=== PATIENT | male | born 1985 | race Caucasian/White ===

== ENCOUNTER → 2019-12-08 14:37 | Outpatient (CLI) | payer OTHER, SELFPAY ==
[2019-12-08 15:05] LABS: Basophils # 0.1 K/mm3 (0-0.2); Eosinophils # 0.7 K/mm3 (0.0-0.4); Eosinophils % 8.2 % (0.1-12.0); Hemoglobin 16.4 g/dL (14.1-18.0); Lymphocytes # 1.9 K/mm3 (0.7-4.5); Lymphocytes % 23.4 % (10-50); Mean Corpuscular HGB Conc 34.3 g/dL (31.8-35.4); Mean Corpuscular Hemoglobin 29.8 pg (27.0-31.2); Mean Platelet Volume 7.6 fl (7.4-10.4); Monocytes # 0.4 K/mm3 (0.1-1.0); Monocytes % 5.2 % (1.7-9.3); Neutrophils # 5.1 K/mm3 (1.8-7.8); Neutrophils % 62.1 % (37.0-80.0); Platelet Count 382 K/mm3 (142-424); Red Blood Count 5.51 M/mm3 (4.60-6.20); Red Cell Distribution Width 13.1 % (11.5-17.5); White Blood Count 8.2 K/mm3 (4.8-10.8)
[2019-12-08 16:11] LABS: Chloride 105 mmol/L (98-107); Potassium 4.3 mmoL/L (3.5-5.1); Sodium 139 mmol/L (136-145)
[2019-12-08 16:13] LABS: Alanine Aminotransferase 213 U/L (12-78); Albumin Level 4.5 g/dl (3.5-5.0); Alkaline Phosphatase 96 U/L (38-126); Aspartate Amino Transferase 84 U/L (17-59); Bilirubin,Total 0.6 mg/dl (0.2-1.3); Blood Urea Nitrogen 12 mg/dl (9-20); Estimated Glomerular Filt Rate 112 ml/min (>60); GFR (African American) 136 ML/MIN (>60)
[2019-12-08 16:14] LABS: Albumin/Globulin Ratio 1.7 (1.1-1.8); Anion Gap 12.3 mEq/L (5-15); Calcium 9.1 mg/dl (8.4-10.2); Carbon Dioxide 26 mmol/L (22.0-30.0); Chol/HDL Ratio 4.9 (1-3.5); Cholesterol 228 mg/dl (140-200); Globulin 2.7 g/dL (1.3-3.2); Glucose 89 mg/dl (74-100); HDL Cholesterol 47 mg/dl (40-60); Total Protein,Serum 7.2 g/dl (6.3-8.2); Triglycerides 270 mg/dl (30-150); VLDL Cholesterol 54 mg/dL (0-40)
[2019-12-08 16:25] LABS: Direct LDL Cholesterol 175.58 mg/dL (100-129)
[2019-12-08 16:30] LABS: T4 (Thyroxine) 7.8 ug/dl (5.53-11.0)
[2019-12-08 16:44] LABS: Thyroid Stimulating Hormone 1.95 uIU/mL (0.465-4.68)
[2019-12-10 08:13] LABS: Hep A Ab, IgM Negative (Negative); Hepatitis B Core Antibody IgM Negative (Negative); Hepatitis B Surface Antigen Negative (Negative)
[2019-12-10 14:15] LABS: Vitamin D 25 Hydroxy 28.8 ng/mL (30.0-100.0)
[2019-12-10 14:16] LABS: Hepatitis C Antibody 0.1 s/co ratio (0.0-0.9)
== END ==
PROVIDERS: Visit Provider Physician Assistant
DX: E66.9 Obesity, unspecified (principal); R74.8 Abnormal levels of other serum enzymes
CPT/HCPCS: 80053; 80061; 80074; 82652; 84436; 84443; 85025

== ENCOUNTER → 2020-01-24 11:18 | Outpatient (CLI) | payer OTHER, SELFPAY ==
[2020-01-25 08:29] LABS: Covid-19 Nasal PCR Sendout UK Not Detected
== END ==
PROVIDERS: PCP Emergency Medicine; Visit Provider Emergency Medicine
DX: Z03.818 Encounter for observation for suspected exposure to other biological agents ruled out (principal)
CPT/HCPCS: U0003

== ENCOUNTER → 2020-04-08 18:03 | Outpatient (CLI) | payer OTHER, SELFPAY ==
[2020-04-08 19:05] LABS: Basophils # 0.1 K/mm3 (0-0.2); Basophils % 0.7 % (0.1-2.0); Eosinophils # 0.6 K/mm3 (0.0-0.4); Eosinophils % 5.5 % (0.1-12.0); Hematocrit 45.5 % (42.0-52.0); Hemoglobin 16.1 g/dL (14.1-18.0); Lymphocytes # 1.8 K/mm3 (0.7-4.5); Lymphocytes % 16.4 % (10-50); Mean Corpuscular HGB Conc 35.5 g/dL (31.8-35.4); Mean Corpuscular Hemoglobin 30.1 pg (27.0-31.2); Mean Corpuscular Volume 84.9 fl (80-94); Mean Platelet Volume 7.8 fl (7.4-10.4); Monocytes # 0.5 K/mm3 (0.1-1.0); Monocytes % 4.6 % (1.7-9.3); Neutrophils # 7.8 K/mm3 (1.8-7.8); Neutrophils % 72.8 % (37.0-80.0); Platelet Count 388 K/mm3 (142-424); Red Blood Count 5.36 M/mm3 (4.60-6.20); White Blood Count 10.8 K/mm3 (4.8-10.8)
[2020-04-08 19:12] LABS: Chloride 101 mmol/L (98-107); Potassium 4.2 mmoL/L (3.5-5.1); Sodium 140 mmol/L (136-145)
[2020-04-08 19:14] LABS: Alanine Aminotransferase 211 U/L (12-78); Aspartate Amino Transferase 81 U/L (17-59); Blood Urea Nitrogen 13 mg/dl (9-20); Estimated Glomerular Filt Rate 111 ml/min (>60); GFR (African American) 135 ML/MIN (>60)
[2020-04-08 19:15] LABS: Albumin Level 4.3 g/dl (3.5-5.0); Albumin/Globulin Ratio 1.6 (1.1-1.8); Alkaline Phosphatase 81 U/L (38-126); Anion Gap 15.2 mEq/L (5-15); Bilirubin,Total 0.6 mg/dl (0.2-1.3); Calcium 9.6 mg/dl (8.4-10.2); Carbon Dioxide 28 mmol/L (22.0-30.0); Chol/HDL Ratio 4.3 (1-3.5); Cholesterol 233 mg/dl (140-200); Globulin 2.7 g/dL (1.3-3.2); Glucose 169 mg/dl (74-100); HDL Cholesterol 54 mg/dl (40-60); Triglycerides 252 mg/dl (30-150); VLDL Cholesterol 50 mg/dL (0-40)
[2020-04-08 19:26] LABS: Direct LDL Cholesterol 157.76 mg/dL (100-129)
[2020-04-10 16:46] LABS: Testosterone,Total 160 ng/dL (264-916)
== END ==
PROVIDERS: Visit Provider Physician Assistant
DX: F32.9 Major depressive disorder, single episode, unspecified (principal)
CPT/HCPCS: 80053; 80061; 84403; 84436; 84443; 85025

== ENCOUNTER → 2020-04-19 09:34 | Outpatient (CLI) | payer OTHER, SELFPAY ==
--- NOTE | 2020-04-19 09:34 | US_ITS ---
PROCEDURE: US LIVER CLINICAL INDICATION: elevated lft COMPARISON: No exams were available for comparison FINDINGS: PANCREAS: Unremarkable. No obvious mass or abnormal fluid collection. No ductal dilatation LIVER: Diffuse increased echogenicity of the liver with poor through transmission of sound consistent with hepatic steatosis. No focal liver lesion demonstrated. There is appropriate direction of blood flow within non dilated portal vein. RIGHT KIDNEY: Unremarkable. Normal size and echogenicity. No hydronephrosis GALLBLADDER: No gallstones, gallbladder wall thickening, pericholecystic fluid, or biliary dilatation. IMPRESSION: Fatty liver otherwise negative Dictated by: Aubrey Caldwell MD 04/19/2020 13:41 Aubrey Caldwell MD in [place] 04/19/2020 13:41
== END ==
PROVIDERS: PCP Physician Assistant; Visit Provider Emergency Medicine
DX: R79.89 Other specified abnormal findings of blood chemistry (principal); R73.9 Hyperglycemia, unspecified
CPT/HCPCS: 76705

== ENCOUNTER → 2020-04-23 21:40 | Outpatient (CLI) | payer OTHER, SELFPAY ==
[2020-04-25 08:25] LABS: Covid-19 Nasal PCR Sendout UK Not Detected
== END ==
PROVIDERS: PCP Physician Assistant; Visit Provider Physician Assistant
DX: Z03.818 Encounter for observation for suspected exposure to other biological agents ruled out (principal)
CPT/HCPCS: U0003

== ENCOUNTER → 2020-09-27 17:51 | Outpatient (CLI) | payer OTHER, SELFPAY ==
[2020-09-27 18:03] LABS: Basophils # 0.1 K/mm3 (0-0.2); Basophils % 0.8 % (0.1-2.0); Eosinophils # 0.7 K/mm3 (0.0-0.4); Eosinophils % 7.1 % (0.1-12.0); Hemoglobin 15.9 g/dL (14.1-18.0); Lymphocytes # 2.8 K/mm3 (0.7-4.5); Lymphocytes % 29.9 % (10-50); Mean Corpuscular HGB Conc 33.9 g/dL (31.8-35.4); Mean Corpuscular Hemoglobin 28.6 pg (27.0-31.2); Mean Corpuscular Volume 84.3 fl (80-94); Mean Platelet Volume 7.7 fl (7.4-10.4); Monocytes # 0.6 K/mm3 (0.1-1.0); Monocytes % 6.2 % (1.7-9.3); Neutrophils # 5.3 K/mm3 (1.8-7.8); Neutrophils % 55.9 % (37.0-80.0); Platelet Count 452 K/mm3 (142-424); Red Blood Count 5.57 M/mm3 (4.60-6.20); Red Cell Distribution Width 13.1 % (11.5-17.5); White Blood Count 9.5 K/mm3 (4.8-10.8)
[2020-09-27 19:24] LABS: Hemoglobin A1C 5.8 % (4.0-6.0)
[2020-09-27 20:12] LABS: Alanine Aminotransferase 152 U/L (12-78); Albumin Level 4.7 g/dl (3.5-5.0); Albumin/Globulin Ratio 1.8 (1.1-1.8); Alkaline Phosphatase 90 U/L (38-126); Anion Gap 14.3 mEq/L (5-15); Aspartate Amino Transferase 47 U/L (17-59); Bilirubin,Total 0.5 mg/dl (0.2-1.3); Blood Urea Nitrogen 13 mg/dl (9-20); Calcium 9.8 mg/dl (8.4-10.2); Carbon Dioxide 24 mmol/L (22.0-30.0); Chloride 105 mmol/L (98-107); Chol/HDL Ratio 5.3 (1-3.5); Cholesterol 243 mg/dl (140-200); Estimated Glomerular Filt Rate 111 ml/min (>60); GFR (African American) 135 ML/MIN (>60); Globulin 2.6 g/dL (1.3-3.2); Glucose 73 mg/dl (74-100); HDL Cholesterol 46 mg/dl (40-60); Potassium 4.3 mmoL/L (3.5-5.1); Sodium 139 mmol/L (136-145); Total Protein,Serum 7.3 g/dl (6.3-8.2); Triglycerides 293 mg/dl (30-150); VLDL Cholesterol 59 mg/dL (0-40)
[2020-09-27 20:23] LABS: Direct LDL Cholesterol 173.02 mg/dL (100-129)
[2020-09-27 20:29] LABS: T4 (Thyroxine) 8.8 ug/dl (5.53-11.0)
[2020-09-27 20:30] LABS: 25-OH Vitamin D, Total 16.3 ng/mL (30-100)
[2020-09-27 20:43] LABS: Thyroid Stimulating Hormone 2.04 uIU/mL (0.465-4.68)
== END ==
PROVIDERS: Visit Provider Physician Assistant
DX: Z00.00 Encounter for general adult medical examination without abnormal findings (principal); R73.9 Hyperglycemia, unspecified; E55.9 Vitamin D deficiency, unspecified; Z79.899 Other long term (current) drug therapy
CPT/HCPCS: 80053; 80061; 82306; 83036; 84436; 84443; 85025

== ENCOUNTER → 2021-03-07 14:21 | Outpatient (CLI) | payer OTHER, SELFPAY ==
[2021-03-07 15:08] LABS: Barbiturates Screen,Urine Negative ng/ml (<200); Benzodiazepines Screen,Urine Negative ng/ml (<200)
[2021-03-07 15:09] LABS: Amphetamine/Metha Screen,Urine Negative ng/ml (<1000)
[2021-03-07 15:10] LABS: Methadone Screen,Urine Negative ng/ml (<300)
[2021-03-07 15:11] LABS: Cannabinoid Screen,Urine Negative ng/ml (<50); Cocaine Screen,Urine Negative ng/ml (<300)
[2021-03-07 15:12] LABS: Opiate Screen,Urine Negative ng/ml (<300); Phencyclidine Screen,Urine Negative ng/ml (<25)
== END ==
PROVIDERS: Visit Provider Physician Assistant
DX: Z79.899 Other long term (current) drug therapy (principal)
CPT/HCPCS: 80305

== ENCOUNTER → 2021-06-03 19:22 | Outpatient (CLI) | payer OTHER, SELFPAY | PROVIDERS: Visit Provider Nurse Practitioner Family | DX: Z20.822 Contact with and (suspected) exposure to COVID-19 (principal) | CPT/HCPCS: C9803; U0003; U0005 ==

== ENCOUNTER 2022-06-04 09:48 | Emergency (ER) | payer OTHER, SELFPAY ==
[2022-06-04 10:22] VITALS: BP 120/79; PULSE 97; RESP 20; TEMP 36.9; O2SAT 95; BMI 40.1
--- NOTE | 2022-06-04 10:39 | HMH.EDGENADL ---
Discharge Plan Disposition Patient Disposition: Home, Self-Care Condition: Good Prescriptions Prescriptions: New cephalexin 500 mg capsule 500 mg PO Q8H 7 Days Qty: 21 0RF No Action cholecalciferol (vitamin D3) 25 mcg (1,000 unit) capsule 1,000 unit PO DAILY Qty: 90 1RF atorvastatin 10 mg tablet See Rx Instructions .ROUTE .COMPLEX Qty: 30 2RF Dose Instruction: TAKE 1 TABLET 1 TIME EACH DAY AT BEDTIME Rx Instructions: TAKE 1 TABLET 1 TIME EACH DAY AT BEDTIME dextroamphetamine-amphetamine [Adderall XR] 25 mg capsule,extended release 24hr 25 mg PO DAILY Qty: 30 0RF Referrals Follow up/Referrals: Lili Acuna PA [Primary Care Provider] - See instructions Activity Restrictions/Add. Instructions Additional Instructions/Restrictions: Elevate the hand and apply ice as needed to minimize swelling. Follow-up with [facility] hand as directed. Return for signs of infection such as increasing redness or other concerns Clinical Impressions Clinical Impression: Laceration of hand, left Stand Alone Forms Stand Alone Forms: Work/School Release Instructions Patient Instructions: DI for Laceration Repair Discharge ED Provider: Te Guzman General Adult HPI General Chief complaint: Wound/Laceration Stated complaint: AO 06/04@home@0920 Lac on Lt knuckles Time Seen by Provider: 06/04/22 10:35 Mode of Arrival: Ambulatory Limitations: No Limitations Description of Symptoms (Recalled from ER Triage Doc. by RN): PT STATES HE WAS CUTTING UP A DEER WHEN HE SLICED HIS HAND ACCIDENTLY WITH THE KNIFE, CUT NOTED TO L HAND KNUCKLE OF POINTER FINGER, ACTIVELY BLEEDING, TOWEL IN PLACE PT IS HOLDING PRESSURE, DENIES BEING ON ANY BLOOD THINNERS, NOT UP TO DATE ON TETANUS History of Present Illness HPI narrative: Patient is a [id number] gentleman who presents with an inadvertently self-inflicted laceration to the base of the left index finger sustained shortly prior to ED presentation. He was skinning a deer when he intermittently cut himself. He denies additional injury she denies focal neurological deficits to the affected extremity. Symptoms are described as moderate and without exacerbating alleviating factors Related Data Previous Rx's Medication Instructions Recorded cholecalciferol (vitamin D3) 25 1,000 unit PO DAILY #90 caps 09/28/20 mcg (1,000 unit) capsule atorvastatin 10 mg tablet See Rx Instructions .Route 02/15/21 .COMPLEX #30 tabs dextroamphetamine-amphetamine ER 25 mg PO DAILY #30 caps 05/10/22 25 mg 24hr capsule,extend release (Adderall XR) cephalexin 500 mg capsule 500 mg PO Q8H 7 days #21 caps 06/04/22 Allergies Allergy/AdvReac Type Severity Reaction Status Date / Time No Known Allergies Allergy Verified 05/10/22 15:26 PFSH PFS Medical History Attention Deficit Hyperactivity Disorder (ADHD) Depression Obesity Social History Smoking Status: Never smoker alcohol intake: current substance use type: denies use current occupational status: employed Travel in the last 8 weeks: None ROS Obtained: Yes All systems reviewed & no additional complaints except as documented Physical Exam General General appearance: alert and in no apparent distress Head Head exam: atraumatic, normocephalic and normal inspection Eye Eye exam: Present normal appearance, PERRL and EOMI ENT ENT exam: Present normal exam, normal oropharynx, mucous membranes moist, TM's normal bilaterally and normal external ear exam Neck Neck exam: Present normal inspection, full ROM and trachea midline; Absent meningismus or lymphadenopathy Chest Chest inspection: Present normal inspection and symmetric chest wall rise; Absent tenderness Respiratory Respiratory exam: Present normal lung sounds bilaterally; Absent respiratory distress Cardiovascular Cardiovascular
--- NOTE | 2022-06-04 10:57 | PC.NURSE ---
TYLER ZARAGOZA AT BEDSIDE.
--- NOTE | 2022-06-04 11:10 | XR_ITS ---
PROCEDURE INFORMATION: Exam: XR Left Hand Exam date and time: 06/04/2022 11:10 AM Age: 37 years old Clinical indication: Injury or trauma; Other: Lacaration; Laceration; Hand; Left; Additional info: Lac TECHNIQUE: Imaging protocol: Radiologic exam of the Left hand. Views: 1 or 2 views. COMPARISON: No relevant prior exams. FINDINGS: Bones/joints: Normal. The joint spaces are maintained. No fractures or dislocations. Soft tissues: Mild generalized swelling of the hand. No radiopaque foreign bodies. IMPRESSION: Soft tissue swelling without underlying bony abnormality. No fractures or dislocations. No foreign bodies.
--- NOTE | 2022-06-04 11:18 | PC.NURSE ---
telfa, coban dressing placed on pt L hand at this time pt to radiology
--- NOTE | 2022-06-04 11:42 | PC.NURSE ---
calling [facility] at this time.
[2022-06-04 11:45] VITALS: BP 111/77; PULSE 95; O2SAT 95
--- NOTE | 2022-06-04 11:47 | PC.NURSE ---
hand to return call.
--- NOTE | 2022-06-04 11:54 | PC.NURSE ---
[facility] returned call
--- NOTE | 2022-06-04 11:56 | PC.NURSE ---
TYLER ZARAGOZA speaking with [facility]
[2022-06-04 12:01] VITALS: BP 103/42; PULSE 83; O2SAT 97
--- NOTE | 2022-06-04 12:17 | PC.NURSE ---
CALLED PHARMACY FOR ANCEF IM BECAUSE IT ISN'T AVAILABLE IN OUR [facility].
[2022-06-04 12:30] VITALS: BP 121/83; PULSE 85; O2SAT 94
[2022-06-04 13:03] VITALS: BP 111/78; PULSE 94; O2SAT 97
[2022-06-04 13:11] VITALS: BP 111/78; PULSE 86; RESP 18; TEMP 36.6; O2SAT 97
== END 2022-06-04 13:17 | disposition home or self-care (01) ==
LOC: UTC 09:52 → ER 10:17
PROVIDERS: Emergency Provider Emergency Medicine; PCP Physician Assistant
DX: S61.211A Laceration without foreign body of left index finger without damage to nail, initial encounter (principal); W26.0XXA Contact with knife, initial encounter; F90.9 Attention-deficit hyperactivity disorder, unspecified type; F32.A Depression, unspecified; E66.9 Obesity, unspecified; Z79.899 Other long term (current) drug therapy; Z23 Encounter for immunization; Y92.009 Unspecified place in unspecified non-institutional (private) residence as the place of occurrence of the external cause
CPT/HCPCS: 73120; 90471; 90715; 96372; 96374; 99284

== ENCOUNTER 2022-09-17 16:35 | Emergency (ER) | payer OTHER, SELFPAY ==
--- NOTE | 2022-09-17 17:37 | EXP.UTC ---
Discharge Plan Disposition Patient Disposition: Home, Self-Care Condition: Good Prescriptions Prescriptions: New benzonatate [benzonatate] 100 mg capsule 100 mg PO TIDP PRN (Reason: Cough) Qty: 30 0RF methylprednisolone 4 mg Tablets,Dose Pack 4 mg PO DIRECTED Qty: 21 0RF amoxicillin-pot clavulanate 875-125 mg Tablet 1 tab PO Q12H Qty: 20 0RF No Action atorvastatin 10 mg tablet See Rx Instructions .ROUTE .COMPLEX Qty: 30 2RF Dose Instruction: TAKE 1 TABLET 1 TIME EACH DAY AT BEDTIME Rx Instructions: TAKE 1 TABLET 1 TIME EACH DAY AT BEDTIME dextroamphetamine-amphetamine [Adderall XR] 30 mg capsule,extended release 24hr 30 mg PO DAILY cholecalciferol (vitamin D3) 25 mcg (1,000 unit) capsule 1,000 unit PO DAILY Referrals Follow up/Referrals: Lili Acuna PA [Primary Care Provider] - See instructions Activity Restrictions/Add. Instructions Additional Instructions/Restrictions: Drink plenty of fluids. Take tylenol or ibuprofen for pain or fever. Take the medications as directed. Follow up with your regular doctor. GO TO THE ER FOR ANY WORSENING SYMPTOMS Clinical Impressions Clinical Impression: Sinusitis Stand Alone Forms Stand Alone Forms: Work/School Release Instructions Patient Instructions: DI for Sinusitis Discharge ED Provider: George Tucker [facility] General Stated complaint: sinus,Ears congestion Time Seen by Provider: 09/17/22 17:37 History of Present Illness Provider Complaint: He states that for the past 2 weeks he has had worsening sinus congestion, He has pressure in his face and now he is starting to have gum and tooth pain. Related Data Home Medications Medication Instructions Recorded Confirmed cholecalciferol (vitamin D3) 25 1,000 unit PO DAILY . 09/17/22 09/17/22 mcg (1,000 unit) capsule dextroamphetamine-amphetamine ER 30 mg PO DAILY ADHD 09/17/22 09/17/22 30 mg 24hr capsule,extend release (Adderall XR) Previous Rx's Medication Instructions Recorded atorvastatin 10 mg tablet See Rx Instructions .Route 02/15/21 .COMPLEX #30 tabs amoxicillin 875 mg-potassium 1 tab PO Q12H #20 tabs 09/17/22 clavulanate 125 mg tablet benzonatate 100 mg capsule 100 mg PO TIDP PRN Cough #30 caps 09/17/22 methylprednisolone 4 mg tablets in 4 mg PO DIRECTED #21 tabs 09/17/22 a dose pack Allergies Allergy/AdvReac Type Severity Reaction Status Date / Time No Known Allergies Allergy Verified 09/17/22 17:51 [facility] Disclaimer: The information contained in this section may have been updated after the patient was seen, as this information can be updated by other users. Medical History Attention Deficit Hyperactivity Disorder (ADHD) Depression Obesity Social History Smoking Status: Never smoker alcohol intake: current substance use type: denies use current occupational status: employed Travel in the last 8 weeks: None ROS Obtained: Yes All systems reviewed & no additional complaints except as documented Constitutional Constitutional: Reports poor appetite Eyes Eyes: Reports system reviewed and no additional complaints, except as documented ENT Ears, Nose, Mouth, and Throat: Reports as per HPI Cardiovascular Cardiovascular: Reports system reviewed and no additional complaints, except as documented and Denies chest pain Respiratory Respiratory: Denies shortness of breath, Denies chest congestion, Reports cough, Denies stridor and Denies wheezing Gastrointestinal Gastrointestingal: Reports system reviewed and no additional complaints, except as documented; Denies abdominal pain, diarrhea or vomiting Musculoskeletal Musculoskeletal: Reports system reviewed and no additional complaints, except as documented and Denies arthralgias Integumentary/Breasts Skin/Breast: Reports system revi
[2022-09-17 17:45] VITALS: BP 130/78; PULSE 92; RESP 20; TEMP 36.7; O2SAT 98; BMI 39.5
[2022-09-17 18:30] VITALS: BP 130/78; PULSE 92; RESP 20; TEMP 36.7; O2SAT 98
== END 2022-09-17 18:30 | disposition home or self-care (01) ==
PROVIDERS: Emergency Provider Nurse Practitioner Family; PCP Physician Assistant
DX: J01.90 Acute sinusitis, unspecified (principal)
CPT/HCPCS: 96372; 99212; 99214; G0463; J0696

== ENCOUNTER → 2023-05-23 07:46 | Outpatient (CLI) | payer BC, SELFPAY ==
[2023-05-23 20:26] LABS: Basophils % 0.5 % (0.1-2.0); Eosinophils # 0.4 K/mm3 (0.0-0.4); Hematocrit 47.2 % (42.0-52.0); Hemoglobin 16.6 g/dL (14.1-18.0); Lymphocytes % 21.9 % (10-50); Mean Corpuscular HGB Conc 35.1 g/dL (31.8-35.4); Mean Corpuscular Hemoglobin 30.8 pg (27.0-31.2); Mean Corpuscular Volume 87.9 fl (80-94); Mean Platelet Volume 8.9 fl (7.4-10.4); Monocytes # 0.5 K/mm3 (0.1-1.0); Monocytes % 5.3 % (1.7-9.3); Neutrophils # 6.2 K/mm3 (1.8-7.8); Neutrophils % 68.4 % (37.0-80.0); Platelet Count 396 K/mm3 (142-424); Red Blood Count 5.37 M/mm3 (4.60-6.20)
[2023-05-23 20:48] LABS: Alanine Aminotransferase 36 U/L (12-78); Albumin Level 4.6 g/dl (3.5-5.0); Albumin/Globulin Ratio 1.7 (1.1-1.8); Alkaline Phosphatase 79 U/L (38-126); Anion Gap 16.8 mEq/L (5-15); Aspartate Amino Transferase 36 U/L (17-59); Bilirubin,Total 0.6 mg/dl (0.2-1.3); Blood Urea Nitrogen 15 mg/dl (9-20); Calcium 9.6 mg/dl (8.4-10.2); Carbon Dioxide 25 mmol/L (22.0-30.0); Chloride 102 mmol/L (98-107); Chol/HDL Ratio 4.6 (1-3.5); Cholesterol 208 mg/dl (140-200); Estimated Glomerular Filt Rate 109 ml/min (>60); GFR (African American) 132 ML/MIN (>60); Globulin 2.7 g/dL (1.3-3.2); Glucose 78 mg/dl (74-100); HDL Cholesterol 45 mg/dl (40-60); Potassium 4.8 mmoL/L (3.5-5.1); Sodium 139 mmol/L (136-145); Total Protein,Serum 7.3 g/dl (6.3-8.2); Triglycerides 246 mg/dl (30-150); VLDL Cholesterol 49 mg/dL (0-40)
[2023-05-23 20:59] LABS: Direct LDL Cholesterol 129.66 mg/dL (100-129)
[2023-05-23 21:03] LABS: 25-OH Vitamin D, Total 33.6 ng/mL (30-100)
[2023-05-23 21:20] LABS: Prostate Specific Ag Screen 0.9 ng/ml (0.0-4.0); Thyroid Stimulating Hormone 1.01 uIU/mL (0.465-4.68)
== END ==
LOC: LAB.DROPOF 05-24 07:46
PROVIDERS: PCP Physician Assistant; Visit Provider Physician Assistant
DX: E55.9 Vitamin D deficiency, unspecified (principal); E66.9 Obesity, unspecified; Z68.33 Body mass index [BMI] 33.0-33.9, adult
CPT/HCPCS: 80053; 80061; 82306; 84443; 85025; G0103